=== PATIENT | female | born 1990 ===

== ENCOUNTER 2018-10-01 19:31 | Emergency (ER) | payer OTHER ==
[~2018-10-01] VITALS: Ht 165.1 cm; Wt 62.6 kg
[~2018-10-01 19:31] MED LIST: CEPH500 PO; Zofran Odt4 MG SL
[2018-10-01] MEDS ORDERED: IBUP600 PO (20:24)
== END 2018-10-01 20:43 | disposition home or self-care (01) ==
LOC: ER 19:31
DX: S63.602A Unspecified sprain of left thumb, initial encounter (principal); W23.0XXA Caught, crushed, jammed, or pinched between moving objects, initial encounter; Z87.891 Personal history of nicotine dependence
CPT/HCPCS: 29125; 73130; 99283-25

== ENCOUNTER → 2020-12-31 | Outpatient (CLI) | payer OTHER ==
[~2020-12-31] MED LIST changes: +IBUP600 PO
[2021-01-02 08:09] LABS: HPV 16 Negative (Negative); HPV 18 Negative (Negative); HPV OTHER HR TYPES Positive (Negative)
== END ==
LOC: LAB SHORT 12:28
PROVIDERS: Family Medicine
DX: Z01.419 Encounter for gynecological examination (general) (routine) without abnormal findings (principal)
CPT/HCPCS: 87624; G0123

== ENCOUNTER → 2021-03-16 | Outpatient (CLI) | payer OTHER ==
[2021-03-17 10:51] LABS: Candida species (DNA Probe) Negative (NEGATIVE); G. vaginalis (DNA Probe) Negative (NEGATIVE); T. vaginalis (DNA Probe) Negative (NEGATIVE)
== END | disposition home or self-care (01) ==
LOC: LAB SHORT 14:54
PROVIDERS: Family Medicine
DX: N76.0 Acute vaginitis (principal)
CPT/HCPCS: 87480; 87510; 87660

== ENCOUNTER → 2021-07-08 | Outpatient (CLI) | payer OTHER | LOC: LAB SHORT 19:14 | DX: O09.93 Supervision of high risk pregnancy, unspecified, third trimester (principal); Z3A.00 Weeks of gestation of pregnancy not specified | CPT/HCPCS: 87081; 87150 ==

== ENCOUNTER 2021-07-19 05:10 | Inpatient (IN) | payer OTHER ==
[~2021-07-19] VITALS: Ht 167.6 cm; Wt 68.2 kg
[2021-07-19 05:45] LABS: BASOPHILS ABSOLUTE AUTO 0.03 K/mm3 (0.00-0.23); BASOPHILS PERCENT AUTO 0 % (0-2); EOSINOPHILS ABSOLUTE AUTO 0.05 K/mm3 (0.00-0.68); EOSINOPHILS PERCENT AUTO 1 % (0-6); Hematocrit 31.7 % (33.0-51.0); Hemoglobin 9.4 g/dL (11.5-16.0); IMMATURE GRAN ABSOLUTE AUTO 0.03 K/mm3 (0.00-0.10); IMMATURE GRAN PERCENT AUTO 0 % (0-1); LYMPHOCYTES ABSOLUTE AUTO 1.73 K/mm3 (0.84-5.20); LYMPHOCYTES PERCENT AUTO 21 % (21-46); MONOCYTES ABSOLUTE AUTO 0.83 K/mm3 (0.16-1.47); MONOCYTES PERCENT AUTO 10 % (4-13); Mean Corpuscular HGB 23.9 pg (26.0-34.0); Mean Corpuscular HGB Conc 29.7 g/dL (31.5-36.5); Mean Corpuscular Volume 81 fL (80-100); Mean Platelet Volume 10.2 fL (9.1-12.4); NEUTROPHILS ABSOLUTE AUTO 5.71 K/mm3 (1.96-9.15); NEUTROPHILS PERCENT AUTO 68 % (41-73); Platelet Count 253 K/mm3 (150-400); RDW Coefficient Variation 25.7 % (11.7-14.2); RDW Standard Deviation 50.2 fL (35.1-46.3); Red Blood Cell Count 3.93 M/mm3 (3.80-5.20); White Blood Cell Count 8.38 K/mm3 (4.00-11.30)
--- NOTE | 2021-07-19 08:18 | NUR ---
07/19/21 0818 Magalie Thompson PLACENTA DISCARDED PER DR. LUIS ENRIQUE M.D. FADI MCNEAL RN
--- NOTE | 2021-07-19 08:55 | NUR ---
PACU BARE HUGGER ON PT FEELS COLD
[2021-07-19 09:02] LABS: PCO2 Cord - Arterial 49.1 mmHg (40-50); PO2 Cord - Arterial 17.6 mmHg (16-20); pH Cord - Arterial 7.25 (7.28-7.35)
[2021-07-19 09:04] LABS: PCO2 Cord - Venous 39.5 mmHg (40-50); PO2 Cord - Venous 28.5 mmHg (28-32); pH Umbilical Cord - Venous 7.35 (7.26-7.35)
--- NOTE | 2021-07-19 11:15 | NUR ---
REPORT TO CORI ADAMS RN
--- NOTE | 2021-07-19 12:15 | NUR ---
MD notified of elevated bp. orders received, will continue to monitor.
[2021-07-20 05:39] LABS: BASOPHILS ABSOLUTE AUTO 0.02 K/mm3 (0.00-0.23); BASOPHILS PERCENT AUTO 0 % (0-2); EOSINOPHILS ABSOLUTE AUTO 0.01 K/mm3 (0.00-0.68); EOSINOPHILS PERCENT AUTO 0 % (0-6); Hematocrit 24.5 % (33.0-51.0); Hemoglobin 7.4 g/dL (11.5-16.0); IMMATURE GRAN ABSOLUTE AUTO 0.05 K/mm3 (0.00-0.10); IMMATURE GRAN PERCENT AUTO 0 % (0-1); LYMPHOCYTES ABSOLUTE AUTO 1.47 K/mm3 (0.84-5.20); LYMPHOCYTES PERCENT AUTO 10 % (21-46); MONOCYTES PERCENT AUTO 8 % (4-13); Mean Corpuscular HGB 24.7 pg (26.0-34.0); Mean Corpuscular HGB Conc 30.2 g/dL (31.5-36.5); Mean Corpuscular Volume 82 fL (80-100); Mean Platelet Volume 10.1 fL (9.1-12.4); NEUTROPHILS ABSOLUTE AUTO 11.65 K/mm3 (1.96-9.15); NEUTROPHILS PERCENT AUTO 82 % (41-73); Platelet Count 236 K/mm3 (150-400); RDW Coefficient Variation 26.7 % (11.7-14.2); RDW Standard Deviation 76.8 fL (35.1-46.3); Red Blood Cell Count 2.99 M/mm3 (3.80-5.20)
--- NOTE | 2021-07-21 05:02 | NUR ---
ROUNDED IN ROOM FOUND MOM ASLEEPIN IN BED WITH BABY ON MOMS CHEST. WOKE MOM AND REMINED HER FOR NO COSLEEPING POLICY. MOM STATED SHE WAS TRYING TO FEED AND HAD ONLY FALLEN ASLEEP FOR 5 MINUTES.
[2021-07-21] MEDS ORDERED: OXYC5 PO (12:46)
--- NOTE | 2021-07-21 13:23 | NUR ---
PT D/C HOME WITH NB. ALL D/C TEACHING COMPLETED, QUESTIONS AND CONCERNS ANSWERED. IV REMOVED. PT DECLINED MMR AND FLU VACCINE. WRITTEN PRESCRIPTION HANDED TO PT. PPFU SCHEDULED FOR 07/22/21 AT 2PM.
== END 2021-07-21 13:15 | disposition home or self-care (01) | DRG 787 ==
LOC: BC 05:10
PROVIDERS: ADMIT Obstetrics & Gynecology
PROC: 10D00Z1 Extraction of Products of Conception, Low, Open Approach (ICD-10-PCS; principal; 2021-07-19 07:30)
DX: O34.211 Maternal care for low transverse scar from previous cesarean delivery (principal); D62 Acute posthemorrhagic anemia; O99.02 Anemia complicating childbirth; Z3A.39 39 weeks gestation of pregnancy; Z37.0 Single live birth; Z86.16 Personal history of COVID-19; Z28.21 Immunization not carried out because of patient refusal
CPT/HCPCS: 36415; 82803; 85025; 86850; 86900; 86901; A9270; J0690; J1885; J2210; J2405; J2590; J2704; J2765; J7120

== ENCOUNTER → 2022-06-23 | Outpatient (CLI) | payer OTHER ==
[~2022-06-23] MED LIST changes: +OXYC5 PO
[2022-06-28 00:08] LABS: CHLAMYDIA BY NAA Negative (Negative); GONOCOCCUS BY NAA Negative (Negative); TRICH VAG BY NAA Negative (Negative)
== END | disposition home or self-care (01) ==
LOC: LAB SHORT 12:00 → LAB 12:00
PROVIDERS: Obstetrics & Gynecology
DX: Z20.2 Contact with and (suspected) exposure to infections with a predominantly sexual mode of transmission (principal)
CPT/HCPCS: 87491; 87591; 87661